=== PATIENT | male | born 1960 | race Caucasian/White ===

== ENCOUNTER 2017-11-07 23:29 | Emergency (ER) | payer OTHER ==
[2017-11-07 23:52] VITALS: BP 140/91; PULSE 77; TEMP 98; BMI 25.8
--- NOTE | 2017-11-07 23:53 | PDOC ---
History of Present Illness - General Chief Complaint: Edema Stated Complaint: PAIN Time Seen by Provider: 11/07/17 23:41 History Source: Patient - History of Present Illness Initial Comments: 11/07/17 23:58 57 year old male c/o blood drainage noted to surgical dressing with mild edema at the site. denies numbness or tingling, weakness or pain. patient reports that he called [facility] and was advised to follow up in the nearest ER. patient s/p spinal fusion on 11/02/2017 and was advised to keep hard cervical collar on with off as tolerated. patient reports that dressing with some sanguinous drainage after taking off the collar. Past History - Past Medical History Allergies/Adverse Reactions: Allergies Allergy/AdvReac Type Severity Reaction Status Date / Time No Known Allergies Allergy Verified 11/07/17 23:44 - Suicide/Smoking/Psychosocial Hx Smoking History: Never smoked Have you smoked in the past 12 months: No Information on smoking cessation initiated: No Hx Alcohol Use: No Drug/Substance Use Hx: No Review of Systems - Review of Systems Able to Perform ROS?: Yes Is the patient limited Vincentian proficient: No Constitutional: No: Symptoms Reported, See HPI, Chills, Diaphoresis, Fever, Loss of Appetite, Malaise, Night Sweats, Weakness, Weight Stable, Unintentional Wgt. Loss, Unexplained wgt Loss, Other HEENTM: Yes: Other (neck drainage) Respiratory: No: Symptoms reported, See HPI, Cough, Orthopnea, Shortness of Breath, SOB with Exertion, SOB at Rest, Stridor, Wheezing, Productive cough, Hemoptysis, Other Neurological: No: Symptoms reported, See HPI, Headache, Numbness, Paresthesia, Pre-Existing Deficit, Seizure, Tingling, Tremors, Weakness, Unsteady Gait, Ataxia, Dizziness, Other *Physical Exam - Vital Signs Last Vital Signs Temp Pulse Resp BP Pulse Ox 98.0 F 77 18 140/91 97 11/07/17 23:44 11/07/17 23:44 11/07/17 23:44 11/07/17 23:44 11/07/17 23:44 - Physical Exam General Appearance: Yes: Appropriately Dressed HEENT: positive: Other (NECK SURGICAL SITE NO ERYTHEMA NO FLUCTUANT SURGICAL SITE CLEAN, ) Respiratory/Chest: positive: Lungs Clear, Normal Breath Sounds Cardiovascular: positive: Regular Rhythm, Regular Rate Gastrointestinal/Abdominal: positive: Normal Bowel Sounds, Soft Extremity: positive: Normal Capillary Refill, Normal Inspection, Normal Range of Motion Integumentary: positive: Normal Color, Dry, Warm Neurologic: positive: Fully Oriented, Alert, Normal Mood/Affect Medical Decision Making - Medical Decision Making a: SURGICAL WOUND EVALUATION p: 11/08/17 00:[address] Thornton spinal surgery at [place]. pending call back 11/08/17 00:16 MULTIPLE ATTEMPT MADE TO CONTACT surgeon at [place] Dr. thornton. wound clean and dry. new non adherent dressing applied. patient advised to follow up with surgeon tomorrow. strict return precautions reviewed. 11/08/17 01:04 3 rd attempt no call back. will d/c patient home. patient verbalized understanding of strict return precautions *DC/Admit/Observation/Transfer Diagnosis at time of Disposition: Status post cervical spinal fusion - Discharge Dispostion Disposition: HOME - Referrals Referrals: Ab Amador MD [Primary Care Provider] - Jack Thornton MD [Non Staff, Medical] - Call tomorrow (follow up tomorrow) - Patient Instructions Printed Discharge Instructions: How to Care for a Surgical Wound Additional Instructions: keep wound clean and dry - Post Discharge Activity
== END 2017-11-08 01:34 | disposition home or self-care (01) ==
LOC: JER 23:29
DX: T81.89XA Other complications of procedures, not elsewhere classified, initial encounter (principal); Z98.1 Arthrodesis status; Z48.01 Encounter for change or removal of surgical wound dressing
CPT/HCPCS: 99282-25